=== PATIENT | male | born 1995 | race African-American/Black ===

== ENCOUNTER 2016-09-28 05:24 | Emergency (ER) | payer OTHER ==
[~2016-09-28] VITALS: Ht 190.5 cm; Wt 113.6 kg
[2016-09-28] MEDS ORDERED: HYDROCODONE/ACETAMINOPHEN 5-325 MG TABLET PO ONE (06:15)
[2016-09-28 07:30] LABS: APPEARANCE,URINE CLEAR (CLEAR); GLUCOSE, URINE (UA) NEGATIVE (NEGATIVE); KETONES,URINE NEGATIVE (NEGATIVE); LEUKOCYTE ESTERASE ,URINE NEGATIVE (NEGATIVE); OCCULT BLOOD,URINE NEGATIVE (NEGATIVE); PH,URINE 6.5 (5.0-8.0); PROTEIN,URINE NEGATIVE (NEGATIVE)
[2016-09-28 07:33] LABS: RBC,URINE None Seen /HPF (0-2); WBC,URINE None Seen /HPF (0-5)
[2016-09-28 07:51] VITALS: BP 156/83
[2016-09-28] MEDS ORDERED: AZITHROMYCIN 250 MG TABLET PO ONE (08:15)
[2016-09-28] MEDS ORDERED: CefTRIAXone SODIUM 1 GM/VIAL IM ONE (08:15)
[2016-09-28] MEDS ORDERED: LIDOCAINE HCL/PF 1% 2 ML VIAL IM ONE (08:15)
[2016-10-01 17:32] LABS: GC DNA N.A. AMPLIFY Negative (Negative)
== END 2016-09-28 08:29 | disposition home or self-care (01) ==
LOC: EMS 05:25
DX: N45.1 Epididymitis (principal); N50.89 Other specified disorders of the male genital organs
CPT/HCPCS: 76870; 81001; 87491; 87591; 96372; 99285; J0696; J3490